=== PATIENT | male | born 1940 | race Caucasian/White ===

== ENCOUNTER 2017-05-23 01:43 | Inpatient (IN) | payer MEDICARE, BC ==
[~2017-05-23] VITALS: Ht 175.3 cm; Wt 80.7 kg
--- NOTE | 2017-05-23 01:59 | NUR ---
MEDICALLY CLEARED BY DR MONSIVAIS
--- NOTE | 2017-05-23 02:28 | NUR ---
TRANSFERED TO [facility] VIA WHEELCHAIR
[2017-05-23 02:45] VITALS: BP 118/72
--- NOTE | 2017-05-23 03:45 | NUR ---
received to care at 0240, from the ER, a transfer from [facility], on a 72 hour hold, for danger to self. according to the chart, he lives at home. he allegedly told his friend that he wanted to buy a shotgun at [employer], and shoot himself. the same friend reported that he was writing goodbye notes to his friends, and is unable to care for himself at home, due to a recent stroke, that occurred around 3 weeks ago. upon arrival on the unit, he was pleasant and cooperative. denied SI, or the desire to harm self, and denied ever stating a desire to harm himself. he was assisted to bed at 0315, and , as of 0345, appears to be asleep. no distress noted. will continue to monitor closely.
[2017-05-23 05:54] VITALS: BP 149/75
--- NOTE | 2017-05-23 06:00 | NUR ---
pt was found on floor, next to his bed, at 0530. he stated he tried to get out of bed, without assistance. a small abrasion was noted to his left wrist. wound was cleaned, and dressed. pt denies any head injury, or loss of consciousness. he was assisted to the bathroom, and back to bed, with bed alarm on, and and vital signs are WNL. denies any pain or discomfort. will continue to monitor closely.
--- NOTE | 2017-05-23 06:09 | NUR ---
Dr Finn was notified of the fall incident. 1;1 sitter ordered, for safety monitoring. Dr Moulton was also notified; no new orders given.
--- NOTE | 2017-05-23 06:30 | NUR ---
slept 2.25 hours, total. continues to sleep. no distress noted.
--- NOTE | 2017-05-23 10:58 | NUR ---
PT WAS NOTED TO BE ANXIOUS, REQUESTING TO HAVE HIS CELLPHONE. EXPLAINED TO HIM ABOUT OUR POLICY AND THAT OUR PHONE CAN BE USED INSTEAD. PT WAS BEING ARGUMENTATIVE. [place] OFFERED BUT PT REFUSED DESPITE ENCOURAGEMENT. SHOWER OFFERED. WILL MONITOR. REMAINS ON 1;1 SITTER.
[2017-05-23 15:22] VITALS: BP 156/92
--- NOTE | 2017-05-23 15:48 | NUR ---
Initial DC Plan: Patient currently lives at home with his brother [[address] [place] [id number]] and stated he would like to return there upon discharge. SW spoke with patient's brother [[phone]] who reported that they had discussed patient going to a rehab facility for his stroke prior to hospital admission. SW will follow up with patient, MD, and patient's brother to discuss most appropriate discharge plans. SW will form a safe and proper discharge.
--- NOTE | 2017-05-23 15:48 | NUR ---
Discharge Planning Note: DARIUSZ spoke with patient's brother Fazal [[phone]] who confirmed there are no guns or weapons in the patient's home.
[2017-05-23 20:49] VITALS: BP 156/92
--- NOTE | 2017-05-23 22:00 | NUR ---
received to care, lying in bed, isolative, but pleasant upon approach. 1;1 sitter remains at side, for safety. pt continues to deny SI, or desire to harm self. compliant with medications, and staff direction. PRN restoril given at 2113, for insomnia. as of 2199, he appears to be asleep. no distress noted. will continue to monitor closely.
--- NOTE | 2017-05-24 06:00 | NUR ---
slept 7.5 hours, total. continues to sleep. no distress noted.
[2017-05-24 07:16] LABS: BASOPHILS % (AUTO) 0.7 % (0.0-2.0); EOSINOPHILS # (AUTO) 0.1 K/uL (0.0-0.7); EOSINOPHILS % (AUTO) 2.1 % (0.0-7.0); HEMATOCRIT 40.7 % (36.7-47.1); HEMOGLOBIN 13.9 g/dL (12.5-16.3); LYMPHOCYTES # (AUTO) 1.3 K/uL (20.0-40.0); LYMPHOCYTES % (AUTO) 21.3 % (20.5-51.5); MEAN CORPUSCULAR HEMOGLOBIN 31.6 uug (23.8-33.4); MEAN CORPUSCULAR HGB CONC 34 g/dL (32.5-36.3); MEAN CORPUSCULAR VOLUME 92.2 fL (73.0-96.2); MONOCYTES # (AUTO) 0.6 K/uL (2.0-10.0); MONOCYTES % (AUTO) 9.8 % (0.0-11.0); NEUTROPHILS # (AUTO) 3.9 K/uL (1.8-8.9); NEUTROPHILS % (AUTO) 66.1 % (38.5-71.5); PLATELET COUNT (AUTO) 175 K/uL (152-348); RED BLOOD CELL COUNT(AUTO) 4.41 MIL/uL (4.06-5.63)
[2017-05-24 07:30] VITALS: BP 140/87
[2017-05-24 08:07] LABS: ALANINE AMINOTRANSFERASE 22 U/L (16-63); ALKALINE PHOSPHATASE 89 U/L (50-136); ASPARTATE AMINOTRANSFERASE 17 U/L (15-37); BILIRUBIN,TOTAL 0.6 mg/dL (0.2-1.0); CARBON DIOXIDE 27 mmol/L (21-32); CHLORIDE 104 mmol/L (98-107); CHOLESTEROL 271 mg/dL (<200); CREATININE 0.9 mg/dL (0.6-1.3); GLUCOSE 273 mg/dL (74-106); HDL CHOLESTEROL 39 mg/dL (40-60); MAGNESIUM 1.6 mg/dL (1.8-2.4); PHOSPHOROUS 3.8 mg/dL (2.5-4.9); POTASSIUM 4.2 mmol/L (3.5-5.1); TOTAL PROTEIN, SERUM 5.8 g/dL (6.4-8.2); TRIGLYCERIDES 147 MG/DL (30-150); UREA NITROGEN, BLOOD 13 mg/dL (7-18)
--- NOTE | 2017-05-24 13:30 | NUR ---
PTS FRIEND LEIGH GARCIA HAS CALLED MANY TIMES THROUGHOUT THE DAY. LEIGH GARCIA KEEPS DEMANDING THAT WE SPEAK WITH HIM ABOUT THE PT, AND THAT PT NEEDS TO BE TRANSFERRED TO [facility] IMMEDIATELY. I EXPLAINED TO HIM, (ALONG WITH 2 OTHER NURSES WHO ALSO EXPLAINED TO HIM EARLIER IN THE DAY) THAT I AM NOT ABLE TO RELEASE ANY PT INFORMATION TO HIM SINCE WE DO NOT HAVE AUTHORIZATION TO DO SO FROM THE PT, AND HE DOES NOT HAVE DPOA.
[2017-05-24 16:00] VITALS: BP 146/72
--- NOTE | 2017-05-24 17:30 | NUR ---
PTS FRIEND LEIGH GARCIA CALLED AGAIN TO SPEAK WITH PT. I LET HIM KNOW ANOTHER PT WAS USING THE PT PHONE AND ASKED HIM TO CALL BACK IN 15 MINUTES. LEIGH GARCIA IS VERY RUDE, DEMANDING, STATES "YOU ARE USING A PHONE RIGHT NOW" I EXPLAINED THAT THE PHONE I WAS USING WAS CONNECTED TO THE WALL IN THE NURSING STATION AND THAT PTS COULD ONLY USE THE PT PHONE. LEIGH GARCIA STATES "THATS RIDICULOUS I DONT KNOW WHY YOU TREAT THE PTS THAT WAY, WELL THEN GET YOUR ASS UP AND WALK OVER TO HIM AND GIVE HIM A MESSAGE FOR ME". I NOTIFIED LEIGH THAT I WOULD THE PT COULD CALL HIM BACK WHEN THE PHONE WAS FREE, AND HE HUNG UP ON ME.
--- NOTE | 2017-05-24 19:01 | NUR ---
Pt is vomiting clear emesis, pt states "can't keep food down but not nauseous". pt states " when I eat dry food, it get stuck in my throat and then I feel like puking". Pt metformin was held b/c pt won't be able to keep down medication. Doctor notified.
--- NOTE | 2017-05-24 19:34 | NUR ---
PRN zofran, given for nausea/vomiting.
[2017-05-24 20:42] VITALS: BP 142/83
--- NOTE | 2017-05-24 22:00 | NUR ---
received to care, lying in bed, pleasant upon approach. denies SI, or desire to harm self. 1;1 sitter remains at side, for safety. continues to c/o nausea, with 2 small episodes to emesis(food contents), around 2099, but, as of 2199, he denies any further nausea/vomiting. accucheck was 156, but he refused coverage, or a snack, due to the previous GI issues. as of 2199, he appears to be asleep. no distress noted. will continue to monitor closely.
--- NOTE | 2017-05-25 06:00 | NUR ---
slept 8.0 hours, total. continues to sleep. no distress noted. sitter remains at side, for safety.
[2017-05-25 07:30] VITALS: BP 139/82
[2017-05-25 08:58] VITALS: BP 134/82
--- NOTE | 2017-05-25 12:10 | NUR ---
PTS FRIEND VANNESA ON UNIT TO VISIT PT. VANNESA IS BEING EXTREMELY RUDE AND RAISING HIS VOICE AT STAFF "SINCE I DID NOT GET HERE UNTIL 1206 I WILL NOT LEAVE AT 1:00, I WILL BE HERE UNTIL 1:06 AND YOU CANT MAKE ME LEAVE A MINUTE EARLIER". DEMANDING TO SEE CAITIE THE SW. NOTIFIED VANNESA THAT CAITIE HAD BEEN CALLED AND IS ON HER WAY OVER. VANNESA CONTINUES TO RAISE HIS VOICE AT STAFF "WHY IS SHE TAKING SO LONG, WHEN IS SHE GOING TO GET HERE, I TOLD YOU TO CALL HER NOW!" I AGAIN TOLD HIM THAT SHE HAD BEEN CALLED AND WAS ON HER WAY HERE. VANNESA YELLS INTO THE NURSING STATION WHILE CLENCHING HIS FISTS "YOUR TESTING MY PATIENCE WOMAN!" FEMALE VISITOR STEPPED IN TO CALM MR GARCIA DOWN AND ESCORT PT AWAY FROM NURSING STATION.
--- NOTE | 2017-05-25 12:41 | NUR ---
DC Note: Patient will be transferred to [facility] [[address] [address]; [phone]] via ambulance at 3:30pm. DARIUSZ spoke with Gila in the Mental Health Unit who stated they will be able to accept the patient today. Per Gila, Dr. Rhoades (Psychiatrist) and Dr. Umanzor (Shop Helper) are the accepting physicians. Spoke with patient who is aware and agreeable with lateral transfer. Spoke with patient's friends Rhett and Larissa [[phone]] who are aware and agreeable with transfer.
--- NOTE | 2017-05-25 13:00 | NUR ---
PTS FRIEND VANNESA ON UNIT REFUSING TO LEAVE. "I DONT CARE IF VISITING HOURS ARE OVER IM NOT LEAVING. YOU WILL HAVE TO CALL THE POLICE TO DRAG ME OFF THE UNIT". SECURITY CALLED TO ESCORT PT OFF UNIT.
--- NOTE | 2017-05-25 15:52 | NUR ---
Pt discharged to [facility], report was given to Gila.Pt is calm, cooperative, v/s stable, skin intact, denies suicidal ideation. Pt contracted for safety inside and outside of the hospital. Pt D/C w/ all belongings, prescriptions, exit care information packet, and 5250 Hold given to paramedics.
--- NOTE | 2017-05-25 16:03 | NUR ---
Analytics Leader: SW filed APS report regarding patient's suspected self-neglect. APS ID #[id number]
== END 2017-05-25 15:52 | DRG 885 ==
LOC: ER 01:49 → GPS 02:22
PROVIDERS: ADMIT Psychiatry & Neurology Psychiatry; ATTEND Internal Medicine
DX: F33.2 Major depressive disorder, recurrent severe without psychotic features (principal); E11.65 Type 2 diabetes mellitus with hyperglycemia; E88.09 Other disorders of plasma-protein metabolism, not elsewhere classified; I69.351 Hemiplegia and hemiparesis following cerebral infarction affecting right dominant side; Z95.1 Presence of aortocoronary bypass graft; Z95.5 Presence of coronary angioplasty implant and graft; Z85.46 Personal history of malignant neoplasm of prostate; E83.42 Hypomagnesemia; E83.51 Hypocalcemia; E78.5 Hyperlipidemia, unspecified; G47.9 Sleep disorder, unspecified; Z98.890 Other specified postprocedural states; I10 Essential (primary) hypertension
CPT/HCPCS: 36415; 83735; 84100; 84443; 85025; A4663; J1815; Q0162